=== PATIENT | female | born 1990 | race Caucasian/White ===

== ENCOUNTER 2023-04-20 10:58 | Emergency (ER) | payer OTHER ==
[2023-04-20 11:09] VITALS: BP 126/90; O2SAT 99
--- NOTE | 2023-04-20 11:43 | ED Physician Documentation ---
PD HPI LOWER EXT INJURY - Stated complaint Stated Complaint: LT KNEE PX, SWELLING - Chief complaint Chief Complaint: Ext Problem - History obtained from History obtained from: Patient - Additional information Additional information: 32-year-old woman with stated history of arthritis presents with relatively atraumatic knee pain starting last night while getting up on a counter. The pain is in the anterior superior knee and worse with bending. She feels a crackling sensation in the knee when she bends it. Has trouble going downstairs because of it. No fevers chills or infectious symptoms. 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 - Present Medications Home Medications: Ambulatory Orders Medication Instructions Recorded Confirmed Atorvastatin Calcium 40 mg PO DAILY 04/20/23 04/20/23 Naproxen 250 mg PO BID PRN #15 tablet 04/20/23 Pimozide 2 mg PO DAILY 04/20/23 04/20/23 Zolpidem [Ambien] 5 mg PO DAILY 04/20/23 04/20/23 - Allergies Allergies/Adverse Reactions: Allergies Allergy/AdvReac Type Severity Reaction Status Date / Time No Known Drug Allergies Allergy Verified 09/23/14 10:43 - Social History Does the pt smoke?: No Smoking Status: Never smoker Does the pt drink ETOH?: Yes Does the pt have substance abuse?: No - Immunizations Immunizations are current?: Yes PD ED PE NORMAL - Vitals Vital signs reviewed: Yes - General General: Alert and oriented X 3, No acute distress - Extremities Extremities: Other (There is a tiny effusion of the left knee, but there is also a tiny effusion of the right knee. She is tender to the superior patella and the distal quadricep anteriorly. No joint tenderness. No warmth or redness. Passive range of motion is painful with extreme flexion. Ligamentous testing is n) - Neuro Neuro: Alert and oriented X 3, Normal speech Eye Opening: Spontaneous Motor: Obeys Commands Verbal: Oriented GCS Score: 15 Results - Vitals Vitals: Vital Signs - 24 hr 04/20/23 11:03 Temperature 37 C Heart Rate 94 Respiratory 16 Rate Blood Pressure 126/90 H O2 Saturation 99 Oxygen O2 Source Room air - Rads (name of study) 4 view x-ray of the left knee is unremarkable Relevant Findings:: Final report received, EMP independent interpretation of te st Departure - Departure Disposition: 01 Home, Self Care Clinical Impression: Patellofemoral syndrome of left knee Condition: Good Record reviewed to determine appropriate education?: Yes Instructions: ED Knee Pain [facility]O Follow-Up: Orthopedic Care [Provider Group] Prescriptions: Naproxen 250 mg PO BID PRN #15 tablet PRN Reason: Pain Comments: Seeming like either patellofemoral syndrome of the left knee or overuse of the distal quadricep tendon. Either way heat, gentle stretching, strengthening of the quadriceps are appropriate. Follow-up with orthopedics in 1 week if not better. Return for new or worsening symptoms. Forms: PCP List Discharge Date/Time: 04/20/23 11:45
--- NOTE | 2023-04-20 12:04 | XRAY Report ---
PROCEDURE: Knee 4 View LT INDICATIONS: Trauma TECHNIQUE: 4 views of the knee(s) were acquired. COMPARISON: None. FINDINGS: Bones: No fractures or dislocations. No suspicious bony lesions. Soft tissues: No knee joint effusion. No suspicious soft tissue calcifications or masses. IMPRESSION: No acute bony abnormality. If there remains a high clinical concern for fracture, including inability to bear weight, consider cross-sectional imaging to exclude an occult fracture. Reviewed by: Reji Mckee MD on 04/20/2023 12:03 PM PDT Approved by: Reji Mckee MD on 04/20/2023 12:03 PM PDT Station ID: [id number]
== END 2023-04-20 11:45 | disposition home or self-care (01) ==
LOC: ED 10:58
DX: M25.862 Other specified joint disorders, left knee (principal); E78.00 Pure hypercholesterolemia, unspecified; Z79.899 Other long term (current) drug therapy
CPT/HCPCS: 99283; 99284

== ENCOUNTER 2023-06-20 12:56 | Outpatient (CLI) | payer OTHER ==
--- NOTE | 2023-06-20 21:17 | MRI Report ---
PROCEDURE: KNEE WO - LT INDICATIONS: LEFT KNEE PAIN TECHNIQUE: Noncontrast sagittal PD fast spin echo and T2 fast spin echo with fat saturation, sagittal 3-D gradie nt sequence with fat saturation; coronal T1 spin echo and PD fast spin echo with fat saturation, and axial PD fast spin echo with fat saturation through the knee. COMPARISON: X-ray left knee, 04/20/2023. FINDINGS: Image quality: Excellent. Menisci: Possible small horizontal tear involving the peripheral aspect of the posterior horn the med ial meniscus. Medial and lateral menisci demonstrate normal morphology and internal signal. The meni scal root ligaments appear intact. Cruciate ligaments: The anterior and posterior cruciate ligaments appear intact. Medial structures: The medial collateral ligament appears intact. The semimembranosus tendon insert ions and meniscocapsular junction appear intact. Visualized portions of the pes anserinus tendons ap pear normal. No abnormal bursal fluid. Lateral structures: The lateral collateral ligament, long and short heads of the biceps femoris tend on appear intact. The popliteus tendon appears normal. Iliotibial band appears normal. Anterior structures: The quadriceps and patellar tendons appear intact. Patellar alignment is adrian l. No femoral trochlear dysplasia or ventral trochlear prominence. There is edema in the suprapatell ar fat pad. Bones and cartilage: No bone marrow contusions or fractures. The cartilage of the medial and latera l femorotibial compartments, as well as the patellofemoral compartment, appears normal in thickness. Joint space: There is small knee joint fluid. Small Gasca's cyst. Normal appearing synovial plicae are incidentally noted. IMPRESSION: 1. Question a small horizontal tear of the posterior horn the medial meniscus. 2. Edema in the suprapatellar fat pad suggesting fat pad impingement. 3. Small Gasca's cyst. 4. Small knee joint effusion. Reviewed by: Ariadna Guerrero MD on 06/20/2023 9:16 PM PST Approved by: Ariadna Guerrero MD on 06/20/2023 9:16 PM PST Station ID: [id number]
== END 2023-06-20 12:57 | disposition home or self-care (01) ==
LOC: DI 12:56
PROVIDERS: ATTEND Internal Medicine
DX: M25.562 Pain in left knee (principal); M25.462 Effusion, left knee; M71.22 Synovial cyst of popliteal space [Baker], left knee

== ENCOUNTER 2023-08-06 15:11 | Emergency (ER) | payer OTHER ==
[2023-08-06 16:13] LABS: BILIRUBIN,URINE NEGATIVE (NEGATIVE); GLUCOSE, URINE (UA) NEGATIVE (NEGATIVE); KETONES,URINE (UA) NEGATIVE (NEGATIVE); LEUKOCYTE ESTERASE, URINE NEGATIVE (NEGATIVE); NITRITE,URINE NEGATIVE (NEGATIVE); OCCULT BLOOD,URINE NEGATIVE (NEGATIVE); PH,URINE 6.5 PH (5.0-7.5); PROTEIN,URINE NEGATIVE (NEGATIVE); UROBILINOGEN,URINE 0.2 (NORMAL) E.U./dL (NORMAL)
[2023-08-06 16:14] LABS: CLARITY,URINE HAZY (CLEAR); HCG UR QUAL NEGATIVE
[2023-08-06 16:22] LABS: BASOPHILS % (AUTO) 0.4 %; EOSINOPHILS % (AUTO) 0.3 %; HCT - HEMATOCRIT 42.8 % (37.0-47.0); HGB - HEMOGLOBIN 14.4 g/dL (12.0-16.0); LYMPHOCYTES # (AUTO) 1.8 10^3/uL (1.5-3.5); LYMPHOCYTES % (AUTO) 18.3 %; MEAN CORPUSCULAR HEMOGLOBIN 29.7 pg (27.0-31.0); MEAN CORPUSCULAR HGB CONC 33.6 g/dL (32.0-36.0); MEAN CORPUSCULAR VOLUME 88.2 fL (81.0-99.0); MEAN PLATELET VOLUME 9.5 fL (7.9-10.8); MONOCYTES # (AUTO) 0.4 10^3/uL (0.0-1.0); MONOCYTES % (AUTO) 4.6 %; NEUTROPHILS # (AUTO) 7.3 10^3/uL (1.5-6.6); PLT - PLATELET COUNT 208 10^3/uL (130-450); RED BLOOD COUNT 4.85 10^6/uL (4.20-5.40); RED CELL DISTRIBUTION WIDTH 11.6 % (12.0-15.0); WHITE BLOOD COUNT 9.7 x10^3/uL (4.8-10.8)
[2023-08-06 16:31] LABS: WBC,URINE 0-3 /HPF (0-5)
[2023-08-06 16:32] LABS: BACTERIA,URINE Moderate /HPF (None Seen); RBC,URINE 0-5 /HPF (0-5); SQUAMOUS EPITHELIAL CELL,UR MANY Squamous (<= Few)
[2023-08-06 16:54] LABS: ALBUMIN 4.7 g/dL (3.2-5.5); ALBUMIN/GLOBULIN RATIO 1.6 (1.0-2.2); BILIRUBIN,TOTAL 0.4 mg/dL (0.2-1.0); CALCIUM 9.8 mg/dL (8.5-10.3); POTASSIUM 3.4 mmol/L (3.5-4.5); TOTAL PROTEIN 7.6 g/dL (6.4-8.9)
--- NOTE | 2023-08-06 16:57 | ED Physician Documentation ---
History of Present Illness - Stated complaint Stated Complaint: LT ABD/SIDE PX - Chief complaint Chief Complaint: Abd Pain - History obtained from History obtained from: Patient - History of Present Illness Pain level max: 6 Pain level now: 5 - Additonal information Additional information: 32-year-old female history of ovarian cyst presents to the emergency department sharp left-sided pelvic pain. Ongoing for the past few days, but it intensified about an hour ago. She states that she does have scant vaginal discharge, white. No STI exposure. No itching. No burning. She took Advil prior to arrival. No nausea or vomiting. No diarrhea or constipation. No fevers. No chills. 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 - Present Medications Home Medications: Ambulatory Orders Medication Instructions Recorded Confirmed Atorvastatin Calcium 40 mg PO DAILY 04/20/23 08/06/23 Pimozide 2 mg PO DAILY 04/20/23 08/06/23 Zolpidem [Ambien] 5 mg PO DAILY 04/20/23 08/06/23 HYDROcod/ACETAM 5/325 [[place] 5/325] 1 - 2 ea PO Q6H PRN #14 tablet 08/06/23 Ondansetron Odt [Zofran] 4 mg TL Q6H PRN #10 tablet 08/06/23 busPIRone [Buspar] 10 mg PO BID 08/06/23 08/06/23 lamoTRIgine [LaMICtal] 200 mg PO DAILY 08/06/23 08/06/23 - Allergies Allergies/Adverse Reactions: Allergies Allergy/AdvReac Type Severity Reaction Status Date / Time No Known Drug Allergies Allergy Verified 08/06/23 15:31 - Social History Does the pt smoke?: No Smoking Status: Never smoker Does the pt drink ETOH?: Yes Does the pt have substance abuse?: No - Immunizations Immunizations are current?: Yes PD ED PE NORMAL - Vitals Vital signs reviewed: Yes - General General: Alert and oriented X 3, No acute distress - HEENT HEENT: PERRL, Moist mucous membranes - Neck Neck: Supple, no meningeal sign - Cardiac Cardiac: RRR - Respiratory Respiratory: No respiratory distress, Clear bilaterally - Abdomen Abdomen: Soft, Non distended, Other (No significant abdominal tenderness but is tender in the left lower pelvic area.) - Back Back: No CVA TTP, No spinal TTP - Derm Derm: Warm and dry, No rash - Extremities Extremities: No edema, No calf tenderness / cord - Neuro Neuro: Alert and oriented X 3 - Psych Psych: Normal mood, Normal affect Results - Vitals Vitals: Vital Signs - 24 hr 08/06/23 08/06/23 15:28 17:30 Temperature 36.6 C Heart Rate 81 78 Respiratory 16 18 Rate Blood Pressure 127/87 H 122/82 H O2 Saturation 99 100 Oxygen O2 Source Room air - Labs Labs: Laboratory Tests 08/06/23 08/06/23 08/06/23 16:01 16:10 16:33 WBC 9.7 RBC 4.85 Hgb 14.4 Hct 42.8 MCV 88.2 MCH 29.7 MCHC 33.6 RDW 11.6 L Plt Count 208 MPV 9.5 Neut # (Auto) 7.3 H Lymph # (Auto) 1.8 [place]uba # (Auto) 0.4 Eos # (Auto) 0.0 Baso # (Auto) 0.0 Absolute Nucleated RBC 0.00 Nucleated RBC % 0.0 Sodium Potassium Chloride Carbon Dioxide Anion Gap BUN Creatinine Estimated GFR (MDRD) Glucose Calcium Total Bilirubin AST ALT Alkaline Phosphatase Total Protein Albumin Globulin Albumin/Globulin Ratio Lipase Urine Color YELLOW Urine Clarity HAZY Urine pH 6.5 Ur Specific Hurricane 1.020 Urine Protein NEGATIVE Urine Glucose (UA) NEGATIVE Urine Ketones NEGATIVE Urine Occult Blood NEGATIVE Urine Nitrite NEGATIVE Urine Bilirubin NEGATIVE Urine Urobilinogen 0.2 (NORMAL) Ur Leukocyte Esterase NEGATIVE Urine RBC 0-5 Urine WBC 0-3 Ur Squamous Epith Cells MANY Squamous H Urine Bacteria Moderate H Ur Microscopic Review INDICATED Urine Culture Comments NOT INDICATED Urine HCG, Qual NEGATIVE C. glabrata (PCR) NEGATIVE C. krusei (PCR) NEGATIVE Maureen species DNA NEGATIVE T. vaginalis (PCR) NEGATIVE Bact Vaginosis (PCR) NEGATIVE 08/06/23 16:35 WBC RBC Hgb Hct MCV MCH MCHC RDW Plt Count MPV Neut # (Auto) Lymph # (Auto) [place] # (Auto) Eos # (Auto) Baso # (Auto) Absolute Nucleated RBC Nucleated RBC % Sodium 136 Potassium 3.4 L Chloride 101 Carbon Dioxide 28 Anion Gap 7.0 BUN 12 Creatinine 1.0 Estimated GFR (MDRD) 65 L Glucose 95 Calcium 9.8 Total Bilirubin 0.4 AST 16 ALT 15 Alkaline Phosphatase 79 Total Protein 7.6 Albumin 4.7 Globulin 2.9 Albumin/Globulin Ratio 1.6 Lipase 33 Urine Color Urine Clarity Urine pH Ur Specific Hurricane Urine Protein Urine Glucose (UA) Urine Ketones Urine Occult Blood Urine Nitrite Urine Bilirubin Urine Urobilinogen Ur Leukocyte Esterase Urine RBC Urine WBC Ur Squamous Epith Cells Urine Bacteria Ur Microscopic Review Urine Culture Comments Urine HCG, Qual C. glabrata (PCR) C. krusei (PCR) Maureen species DNA T. vaginalis (PCR) Bact Vaginosis (PCR) - Rads (name of study) pelvic US Relevant Findings:: Final report received, See rad report PD Medical Decision Making - ED course Complexity details: reviewed results, re-evaluated patient, considered differential (No evidence of appendicitis, peritonitis, diverticulitis. No evidence of PID.), d/w patient ED course: 32-year-old female with a left-sided ovarian cyst, 3.4 x 3.2 x 3 cm. No ovarian torsion. Correlates with her pain. No significant lab abnormalities. Patient is well-appearing, nontoxic. Afebrile. A bacterial vaginitis swab was sent, this is negative. We will treat the patient's pain. Recommend follow-up ultrasound in approximately 6 weeks to ensure resolution. Patient counseled regarding signs and symptoms for which I believe and urgent re-evaluation would be necessary. Patient with good understanding of and agreement to plan and is comfortable going home at this time This document was made in part using voice recognition software. While efforts are made to proofread this document, sound alike and grammatical errors may occur. PROCEDURE: Pelvic w/Doppler Complete INDICATIONS: pelvic pain, L TECHNIQUE: Real-time transabdominal scanning was performed of the pelvic organs, with image documentation. Doppler interrogation was performed of the ovaries bilaterally. COMPARISON: None. FINDINGS: Uterus: Uterus is anteverted and normal in size at 12.3 x 4.1 x 5.7 cm. The myometrium is heterogeneous. The endometrium measures 5.8 mm in combined thickness. Intrauterine device in place. Right anterior subserosal fibroid measuring 1.9 cm. Ovaries: The right ovary measures 2.3 x 1.4 x 1.9 cm, with a calculated ovarian volume of 3.3 cc. The left ovary measures 4.1 x 3.8 x 3.7 cm, with a calculated ovarian volume of 30.6 cc. Left ovarian simple cyst measuring 3.4 x 3.2 x 3.0 cm. Appropriate blood flow to the ovaries with Doppler interrogation. Less than 12 follicles can be seen in each ovary. No adnexal masses are seen. No cystic lesions measuring greater than 3 cm. Other: No pathologic free abdominal or pelvic fluid. IMPRESSION: 1.No evidence of ovarian torsion. No acute findings. 2.Intrauterine device in appropriate position. Departure - Departure Disposition: 01 Home, Self Care Clinical Impression: Left ovarian cyst Condition: Good Instructions: ED Cyst Ovarian Follow-Up: Your,doctor in 1 week [Other] Prescriptions: HYDROcod/ACETAM 5/325 [[place] 5/325] 1 - 2 ea PO Q6H PRN #14 tablet PRN Reason: Pain Ondansetron Odt [Zofran] 4 mg TL Q6H PRN #10 tablet PRN Reason: Nausea / Vomiting Comments: Your prescriptions were sent to [facility] in [place]. Please follow-up with your doctor for further care. Your ultrasound shows a left-sided ovarian cyst, but no evidence of torsion. Please return if your pain worsens. You should have a repeat ultrasound in approximately 6 weeks to ensure resolution. I am prescribing a short course of narcotic pain medication for you. These are potentially dangerous and addictive medications that should be used carefully. These medications may constipate you. Take an [id number]-lvqzrnb stool softener (docusate) twice daily with plenty of water while taking these medications. If you go 24 hours without a bowel movement, take ouyj-pom-uumxypp miralax, per package instructions. Do not drink or drive while taking these medications. If you received narcotic or sedating medications while in the emergency department, do not drive for 24 hours. Store this medication in a safe, secure place and out of reach of children. It is a violation of federal law to give or sell this medication to another person or to use in a manner other than prescribed. The ED will not refill narcotic prescriptions, including prescriptions lost or stolen. To dispose of unwanted medications: 1. [facility] at [address] in [place] has a medication drop box. They accept prescription medications (in pill form) Sunday through Sunday 9:00 a.m. to 5:00 p.m. 2. The [facility] accepts prescription medications (in pill form only) for disposal year round. Call for more information. 3. Contact the [facility] for the next [facility] sponsored prescription drug collection event. , [phone], or [phone]; Forms: PCP List Discharge Date/Time: 08/06/23 18:12
[2023-08-06 18:04] VITALS: BP 122/82; O2SAT 100
[2023-08-06 18:29] LABS: BACTERIAL VAGINOSIS DNA NEGATIVE (NEGATIVE); CANDIDA GLABRATA DNA NEGATIVE (NEGATIVE); CANDIDA GROUP DNA NEGATIVE (NEGATIVE); CANDIDA KRUSEI DNA NEGATIVE (NEGATIVE); TRICHOMONAS VAGINALIS DNA NEGATIVE (NEGATIVE)
--- NOTE | 2023-08-06 18:48 | Ultrasound Report ---
PROCEDURE: Pelvic w/Doppler Complete INDICATIONS: pelvic pain, L TECHNIQUE: Real-time transabdominal scanning was performed of the pelvic organs, with image documentation. Dopp ler interrogation was performed of the ovaries bilaterally. COMPARISON: None. FINDINGS: Uterus: Uterus is anteverted and normal in size at 12.3 x 4.1 x 5.7 cm. The myometrium is heterogen eous. The endometrium measures 5.8 mm in combined thickness. Intrauterine device in place. Right an terior subserosal fibroid measuring 1.9 cm. Ovaries: The right ovary measures 2.3 x 1.4 x 1.9 cm, with a calculated ovarian volume of 3.3 cc. T he left ovary measures 4.1 x 3.8 x 3.7 cm, with a calculated ovarian volume of 30.6 cc. Left ovarian simple cyst measuring 3.4 x 3.2 x 3.0 cm. Appropriate blood flow to the ovaries with Doppler interro gation. Less than 12 follicles can be seen in each ovary. No adnexal masses are seen. No cystic le sions measuring greater than 3 cm. Other: No pathologic free abdominal or pelvic fluid. IMPRESSION: 1.No evidence of ovarian torsion. No acute findings. 2.Intrauterine device in appropriate position. Reviewed by: Raghavendra Aldrich MD on 08/06/2023 6:47 PM PST Approved by: Raghavendra Aldrich MD on 08/06/2023 6:47 PM PST Station ID: [id number]
[2023-08-06 23:18] LABS: CHLAMYDIA TRACHOMATIS DNA NEGATIVE (NEGATIVE); NEISSERIA GONORRHOEAE DNA NEGATIVE (NEGATIVE); TRICHOMONAS VAGINALIS DNA NEGATIVE (NEGATIVE)
== END 2023-08-06 18:12 | disposition home or self-care (01) ==
LOC: ED 15:11
DX: N83.202 Unspecified ovarian cyst, left side (principal); E78.00 Pure hypercholesterolemia, unspecified; M19.90 Unspecified osteoarthritis, unspecified site
CPT/HCPCS: 36415; 80053; 81001; 81003; 81025; 81514; 83690; 85025; 87086; 87491; 87591; 87661; 93975; 99283; 99284

== ENCOUNTER 2023-09-19 18:17 | Emergency (ER) | payer OTHER ==
[2023-09-19 18:38] VITALS: BP 129/82; O2SAT 100
--- NOTE | 2023-09-19 19:44 | ED Physician Documentation ---
PD HPI HEENT - Stated complaint Stated Complaint: RT EAR PX - Chief complaint Chief Complaint: Heent - Additional information Additional information: 32 yo female presents to the ER for bilateral ear pain. Pt states about 3 days ago her right ear started bothering her and today is now noticing increased pain to the left ear. She has had no recent illnesses, describes the pain as being underwater and full with a sensation that her ears are trying to pop but wont. She has tried Multiple idxz-yfi-eoklxhk medications such as different allergy medications Tylenol ibuprofen alleviates the pain temporarily but eventually comes back.. 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 - Present Medications Home Medications: Ambulatory Orders Medication Instructions Recorded Confirmed Atorvastatin Calcium 40 mg PO HS 04/20/23 09/19/23 Pimozide 2 mg PO DAILY 04/20/23 09/19/23 Zolpidem [Ambien] 5 mg PO DAILY PRN 04/20/23 09/19/23 busPIRone [Buspar] 15 mg PO BID 08/06/23 09/19/23 lamoTRIgine [LaMICtal] 200 mg PO HS 08/06/23 09/19/23 Amoxicillin 875 mg PO BID 5 Days #10 tablet 09/19/23 Magnesium Oxide [Magnesium] 420 mg PO BID 09/19/23 09/19/23 Riboflavin (Vitamin B2) [Vitamin 400 mg PO DAILY 09/19/23 09/19/23 B2] Topiramate 25 mg PO BID 09/19/23 09/19/23 - Allergies Allergies/Adverse Reactions: Allergies Allergy/AdvReac Type Severity Reaction Status Date / Time No Known Drug Allergies Allergy Verified 09/19/23 18:30 - Social History Does the pt smoke?: No Smoking Status: Never smoker Does the pt drink ETOH?: Yes Does the pt have substance abuse?: No - Immunizations Immunizations are current?: Yes PD ED PE NORMAL - Vitals Vital signs reviewed: Yes - General General: Alert and oriented X 3, No acute distress, Well developed/nourished - HEENT HEENT: Atraumatic, PERRL, EOMI, Ears normal, Moist mucous membranes, Other (Tympanic membrane is not injected no effusion no abnormalities to the external ear canal) - Cardiac Cardiac: RRR, No murmur, No gallop, Strong equal pulses - Respiratory Respiratory: No respiratory distress, Clear bilaterally - Derm Derm: Normal color, Warm and dry, No rash Results - Vitals Vitals: Vital Signs - 24 hr 09/19/23 18:25 Temperature 36.8 C Heart Rate 84 Respiratory 16 Rate Blood Pressure 129/82 H O2 Saturation 100 Oxygen O2 Source Room air PD Medical Decision Making - ED course ED course: 32-year-old female presents emergency department for bilateral ear pain and disc omfort. Differentials include acute otitis media, external canal ear infection, allergies, eustachian tube dysfunction, foreign body. Bilateral tympanic membranes appear to be completely normal there is no erythema there is no effusion. The patient is experiencing pain from eustachian tube dysfunction. She was told to add Flonase and Sudafed to her regimen given to follow-up with primary care provider about a week or so if pain does not improve. Patient was given a prescription for amoxicillin she was told to save this as a last ditch effort to ear pain and to try the other suggestions above before doing this. Patient says that she will follow-up with primary care Soon she understands return precautions at this point in time she is safe for discharge all questions answered. Departure - Departure Disposition: 01 Home, Self Care Clinical Impression: Eustachian tube dysfunction Qualifiers: Laterality: bilateral Qualified Code(s): H69.93 - Unspecified Eustachian tube disorder, bilateral Instructions: Allergies Nasal Related Probs, ED Otitis Media Acute Adult Prescriptions: Amoxicillin 875 mg PO BID 5 Days #10 tablet Comments: Thank you for trusting us with your care, we have evaluated you for bilateral ear pain and discomfort. As we discussed I believe that you are experiencing eustachian tube dysfunction. Things to help manage this at home are frequent warm compresses to both ears, frequent chewing such as using gum to help ears pop, Flonase to bilateral nostrils take as directed, and Sudafed. I would advise taking Zyrtec for allergy medication. I have sent a prescription of amoxicillin to your preferred pharmacy do not take this unless you absolutely need it because I do not believe that you are experiencing an acute otitis media at this point in time if after 3 to 4 days your pain is gotten worse then go ahead and start taking this. Please fill with your primary care provider as needed keep in mind with eustachian tube dysfunction it can take up to a month for this fullness in your ears to resolve. Please come back to the ER if you are having worsening pain despite taking all prescribed medications or any other concerning symptoms. Wishing you a speedy recovery. Forms: PCP List Discharge Date/Time: 09/19/23 19:57
== END 2023-09-19 19:57 | disposition home or self-care (01) ==
LOC: ED 18:17
DX: H69.93 Unspecified Eustachian tube disorder, bilateral (principal); E78.00 Pure hypercholesterolemia, unspecified; Z79.899 Other long term (current) drug therapy
CPT/HCPCS: 99282; 99283

== ENCOUNTER 2023-11-28 09:17 | Emergency (ER) | payer OTHER ==
[2023-11-28 09:34] VITALS: BP 114/72; O2SAT 100
--- NOTE | 2023-11-28 09:43 | XRAY Report ---
PROCEDURE: Ankle 3+V RT INDICATIONS: Trauma TECHNIQUE: 3 views of the ankle were acquired. COMPARISON: None. FINDINGS: Bones: No fractures or dislocations. Ankle mortise is normally aligned. No suspicious bony lesions . Soft tissues: No tibiotalar joint effusion. Achilles tendon appears normal. IMPRESSION: No acute bony abnormality. Reviewed by: Reji Mckee MD on 11/28/2023 9:42 AM PDT Approved by: Reji Mckee MD on 11/28/2023 9:42 AM PDT Station ID: [id number]
--- NOTE | 2023-11-28 09:58 | ED Physician Documentation ---
PD HPI LOWER EXT INJURY - Stated complaint Stated Complaint: GLF/RT FOOT INJ - Chief complaint Chief Complaint: Trauma Ext - History obtained from History obtained from: Patient - Additional information Additional information: Patient is a 33-year-old female presenting for evaluation of right ankle pain. Patient was at work when she missed a step and rolled her ankle. She did not hit her head. She reports pain with weightbearing. 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 - Present Medications Home Medications: Ambulatory Orders Medication Instructions Recorded Confirmed Atorvastatin Calcium 40 mg PO HS 04/20/23 09/19/23 Pimozide 2 mg PO DAILY 04/20/23 09/19/23 Zolpidem [Ambien] 5 mg PO DAILY PRN 04/20/23 09/19/23 busPIRone [Buspar] 15 mg PO BID 08/06/23 09/19/23 lamoTRIgine [LaMICtal] 200 mg PO HS 08/06/23 09/19/23 Amoxicillin 875 mg PO BID 5 Days #10 tablet 09/19/23 Magnesium Oxide [Magnesium] 420 mg PO BID 09/19/23 09/19/23 Riboflavin (Vitamin B2) [Vitamin 400 mg PO DAILY 09/19/23 09/19/23 B2] Topiramate 25 mg PO BID 09/19/23 09/19/23 - Allergies Allergies/Adverse Reactions: Allergies Allergy/AdvReac Type Severity Reaction Status Date / Time No Known Drug Allergies Allergy Verified 11/28/23 09:27 - Social History Does the pt smoke?: No Smoking Status: Never smoker Does the pt drink ETOH?: Yes Does the pt have substance abuse?: No - Immunizations Immunizations are current?: Yes PD ED PE NORMAL - General General: Alert and oriented X 3, No acute distress, Well developed/nourished - HEENT HEENT: Atraumatic - Neck Neck: Supple, no meningeal sign - Cardiac Cardiac: Strong equal pulses - Respiratory Respiratory: No respiratory distress - Extremities Extremities: No deformity, No edema, No calf tenderness / cord, Other (Pain on range of motion of right ankle, reports tenderness to the dorsum of the right ankle) - Neuro Neuro: Alert and oriented X 3, No motor deficit, No sensory deficit, Normal speech Results - Vitals Vitals: Vital Signs - 24 hr 11/28/23 09:24 Temperature 35.9 C L Heart Rate 73 Respiratory 20 Rate Blood Pressure 114/72 O2 Saturation 100 Oxygen O2 Source Room air PD Medical Decision Making - ED course Complexity details: reviewed results, d/w patient ED course: Patient with right ankle injury after missing a step and rolling it while on stairs. No head injury. Neurovascularly intact. No visible deformities. X- ray was obtained which I reviewed and I see no fracture or dislocation. Patient was placed into an Aircast and given crutches. She understands continued supportive care as well as need for follow-up if symptoms are not improving. Departure - Departure Disposition: 01 Home, Self Care Clinical Impression: Right ankle sprain Condition: Stable Instructions: ED Sprain Ankle W X Ray Comments: Your x-ray does not show a fracture or dislocation regards to your ankle injury. We have given you an Aircast and crutches to help you stay off the ankle while it is hurting to put weight on it. Continue with anti-inflammatory such as acetaminophen or ibuprofen, ice, elevation and rest. Please follow-up with your primary care if your symptoms or not improving over the course of the next week. Forms: PCP List, Activity restrictions Discharge Date/Time: 11/28/23 10:19
== END 2023-11-28 10:19 | disposition home or self-care (01) ==
LOC: ED 09:17
DX: S93.401A Sprain of unspecified ligament of right ankle, initial encounter (principal); X50.1XXA Overexertion from prolonged static or awkward postures, initial encounter; Y99.0 Civilian activity done for income or pay; E78.00 Pure hypercholesterolemia, unspecified; Z79.899 Other long term (current) drug therapy
CPT/HCPCS: 99283

== ENCOUNTER 2024-02-03 09:43 | Outpatient (CLI) | payer OTHER ==
--- NOTE | 2024-02-03 13:38 | Ultrasound Report ---
PROCEDURE: Transvaginal INDICATIONS: OVARIAN CYST TECHNIQUE: Real-time endovaginal scanning was performed of the pelvic organs, with image documentation. COMPARISON: None. FINDINGS: Uterus: Uterus is anteverted and normal in size at 10.2 x 3.1 x 4.6 cm. The myometrium is heterogen eous. The endometrium measures 9 mm in combined thickness. No fibroids. IUD in satisfactory positio n. Note is made of benign-appearing cervical calcifications. Ovaries: The right ovary measures 2.6 x 1.2 x 1.7 cm, with a calculated ovarian volume of 2.6 cc. T he left ovary measures 1.4 x 0.9 x 1.5 cm, with a calculated ovarian volume of 1.0 cc. The ovaries h ave a normal sonographic appearance. Less than 12 follicles can be seen in each ovary. No adnexal m asses are seen. No abnormal ovarian cysts identified. Other: No pathologic free abdominal or pelvic fluid. IMPRESSION: 1. IUD in satisfactory position. 2. No abnormal ovarian cyst identified. Reviewed by: Reji Mckee MD on 02/03/2024 1:37 PM PDT Approved by: Reji Mckee MD on 02/03/2024 1:37 PM PDT Station ID: [id number]
== END 2024-02-03 09:44 | disposition home or self-care (01) ==
LOC: DI 09:43
PROVIDERS: ATTEND Internal Medicine
DX: N83.202 Unspecified ovarian cyst, left side (principal); Z97.5 Presence of (intrauterine) contraceptive device

== ENCOUNTER 2024-02-29 20:33 | Emergency (ER) | payer OTHER ==
[2024-02-29 20:46] VITALS: BP 138/93; O2SAT 100
--- NOTE | 2024-02-29 20:51 | ED Physician Documentation ---
History of Present Illness - Stated complaint Stated Complaint: NAUSEA/MONTEJO - Chief complaint Chief Complaint: General - History obtained from History obtained from: Patient - Additonal information Additional information: 31-year-old woman presents with 2 to 3 days of nausea and intermittent headache with bloating sensation on and off for the past month along with constipation alternating with nonbloody diarrhea. Patient denies urinary symptoms, fever, vomiting. She was at work tonight and began shaking and experiencing headache and nausea and then said that she had to leave. 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 - Present Medications Home Medications: Ambulatory Orders Medication Instructions Recorded Confirmed Atorvastatin Calcium 40 mg PO HS 04/20/23 09/19/23 Pimozide 2 mg PO DAILY 04/20/23 09/19/23 Zolpidem [Ambien] 5 mg PO DAILY PRN 04/20/23 09/19/23 busPIRone [Buspar] 15 mg PO BID 08/06/23 09/19/23 lamoTRIgine [LaMICtal] 200 mg PO HS 08/06/23 09/19/23 Amoxicillin 875 mg PO BID 5 Days #10 tablet 09/19/23 Magnesium Oxide [Magnesium] 420 mg PO BID 09/19/23 09/19/23 Riboflavin (Vitamin B2) [Vitamin 400 mg PO DAILY 09/19/23 09/19/23 B2] Topiramate 25 mg PO BID 09/19/23 09/19/23 - Allergies Allergies/Adverse Reactions: Allergies Allergy/AdvReac Type Severity Reaction Status Date / Time No Known Drug Allergies Allergy Verified 02/29/24 20:36 - Social History Does the pt smoke?: No Smoking Status: Never smoker Does the pt drink ETOH?: Yes Does the pt have substance abuse?: No - Immunizations Immunizations are current?: Yes - POLST Patient has POLST: No PD ED PE NORMAL - Vitals Vital signs reviewed: Yes - General General: Alert and oriented X 3, No acute distress, Well developed/nourished - HEENT HEENT: Atraumatic, PERRL, EOMI - Neck Neck: Supple, no meningeal sign - Cardiac Cardiac: RRR - Respiratory Respiratory: No respiratory distress, Clear bilaterally - Abdomen Abdomen: Non tender, Non distended - Derm Derm: Normal color, Warm and dry - Neuro Neuro: Alert and oriented X 3, 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 She is well-appearing with normal neurologic and abdominal exam and normal vitals and lab work. She is feeling better status post migraine cocktail and symptomatic care was discussed for home. Return precautions given. Plan to follow-up outpatient with her primary care provider. Departure - Departure Clinical Impression: Nausea, Headache, Constipation, Diarrhea, Bloating Condition: Stable Instructions: ED Headache Migraine Comments: You were seen in the emergency department for medical evaluation. Your labwork looked good. Please follow-up with your primary care provider and return to the emergency department if you have any new or worsening symptoms or other concerns. Forms: PCP List, Activity restrictions
[2024-02-29 21:06] LABS: BILIRUBIN,URINE NEGATIVE (NEGATIVE); GLUCOSE, URINE (UA) NEGATIVE (NEGATIVE); KETONES,URINE (UA) NEGATIVE (NEGATIVE); LEUKOCYTE ESTERASE, URINE NEGATIVE (NEGATIVE); NITRITE,URINE NEGATIVE (NEGATIVE); OCCULT BLOOD,URINE NEGATIVE (NEGATIVE); PROTEIN,URINE NEGATIVE (NEGATIVE); UROBILINOGEN,URINE 0.2 (NORMAL) E.U./dL (NORMAL)
[2024-02-29 21:08] LABS: BASOPHILS # (AUTO) 0.1 10^3/uL (0.0-0.1); BASOPHILS % (AUTO) 0.6 %; EOSINOPHILS # (AUTO) 0.1 10^3/uL (0.0-0.7); EOSINOPHILS % (AUTO) 1.3 %; HCT - HEMATOCRIT 43.8 % (37.0-47.0); HGB - HEMOGLOBIN 14.7 g/dL (12.0-16.0); LYMPHOCYTES # (AUTO) 2.8 10^3/uL (1.5-3.5); LYMPHOCYTES % (AUTO) 31.7 %; MEAN CORPUSCULAR HEMOGLOBIN 29.8 pg (27.0-31.0); MEAN CORPUSCULAR HGB CONC 33.6 g/dL (32.0-36.0); MEAN CORPUSCULAR VOLUME 88.7 fL (81.0-99.0); MEAN PLATELET VOLUME 9.6 fL (7.9-10.8); MONOCYTES # (AUTO) 0.5 10^3/uL (0.0-1.0); MONOCYTES % (AUTO) 5.1 %; NEUTROPHILS # (AUTO) 5.3 10^3/uL (1.5-6.6); PLT - PLATELET COUNT 237 10^3/uL (130-450); RED BLOOD COUNT 4.94 10^6/uL (4.20-5.40); RED CELL DISTRIBUTION WIDTH 11.7 % (12.0-15.0); WHITE BLOOD COUNT 8.8 x10^3/uL (4.8-10.8)
[2024-02-29 21:10] LABS: CLARITY,URINE CLEAR (CLEAR); HCG UR QUAL NEGATIVE
[2024-02-29] MEDS: SODIUM CHLORIDE 0.9% 1,000 ML IV STA (21:14)
[2024-02-29] MEDS: diphenhydrAMINE INJ 50 MG/ML VIAL IVP STA (21:14)
[2024-02-29] MEDS: METOCLOPRAMIDE 10 MG/2 ML VIAL IVP STA (21:16)
[2024-02-29] MEDS: KETOROLAC 15 MG/ML VIAL IVP STA (21:17)
[2024-02-29] MEDS: ACETAMINOPHEN 325 MG TABLET PO STA (21:18)
[2024-02-29 21:24] LABS: ALBUMIN 4.9 g/dL (3.2-5.5); ALBUMIN/GLOBULIN RATIO 1.8 (1.0-2.2); BILIRUBIN,TOTAL 0.5 mg/dL (0.2-1.0); CALCIUM 9.8 mg/dL (8.5-10.3); CREATININE 1.1 mg/dL (0.6-1.3); POTASSIUM 3.1 mmol/L (3.5-4.5); TOTAL PROTEIN 7.6 g/dL (6.4-8.9)
[2024-02-29] MEDS: POTASSIUM CHLORIDE 20 MEQ/15 ML UDC PO STA (21:39)
== END 2024-02-29 22:10 | disposition home or self-care (01) ==
LOC: ED 20:33
DX: R51.9 Headache, unspecified (principal); K59.00 Constipation, unspecified; R11.0 Nausea; R19.7 Diarrhea, unspecified; R14.0 Abdominal distension (gaseous); E78.00 Pure hypercholesterolemia, unspecified; Z79.899 Other long term (current) drug therapy
CPT/HCPCS: 36415; 80053; 81003; 81025; 83690; 85025; 96374; 96375; 99283; A9270; J1200; J2765; 81001; 87086